=== PATIENT | male | born 1990 | race Caucasian/White ===

== ENCOUNTER → 2016-09-18 | Outpatient (CLI) | payer OTHER ==
[~2016-09-18] MED LIST: ALBUAER19 INH; DIPH25CA37 PO; ENOX60IN SQ; FAMO20TA11 PO; PARO1TAB27 PO; WARF-246 PO
--- NOTE | 2016-09-18 09:07 | DIAGNOSTIC IMAGING REPORT ---
(RENAL)RETROPERITON COMP CLINICAL HISTORY: 25 years-old Male presenting with ABNORMAL KIDNEY FUNCTION STUDIES. TECHNIQUE: Real-time grayscale and limited color Doppler ultrasound imaging of the kidneys and bladder was performed. COMPARISON: None. FINDINGS: Right kidney: Surgically absent. Left kidney: Normal echogenicity. Left kidney measures 13 cm. No hydronephrosis. No convincing evidence of calculus or mass. Normal perfusion. Bladder: No bladder wall thickening. No ureteral jets noted. Other: None. IMPRESSION: 1. Surgically absent right kidney. No obstructive process in the left kidney. Electronically signed by: Tae Grier M.D. 09/18/2016 9:06 AM Dictated Date/Time: 09/18/2016 9:04 AM
== END | disposition home or self-care (01) ==
LOC: C.ULTR 08:42
PROVIDERS: ATTEND Family Medicine
DX: R94.4 Abnormal results of kidney function studies (principal); Z90.5 Acquired absence of kidney

== ENCOUNTER → 2016-10-11 | Outpatient (CLI) | payer OTHER ==
[2016-10-11 14:07] LABS: BLOOD UREA NITROGEN 13 mg/dl (7-18); BUN/CREATININE RATIO 8.1 (10-20); CALCIUM 9.3 mg/dl (8.5-10.1); CARBON DIOXIDE 28 mmol/L (21-32); CHLORIDE 103 mmol/L (98-107); GLUCOSE 78 mg/dl (70-99); POTASSIUM 3.6 mmol/L (3.5-5.1); SODIUM 136 mmol/L (136-145)
== END | disposition home or self-care (01) ==
LOC: C.LAB1850 11:59
PROVIDERS: ATTEND Internal Medicine Nephrology
DX: Z90.5 Acquired absence of kidney (principal)